=== PATIENT | male | born 1970 | race Caucasian/White ===

== ENCOUNTER 2023-10-24 12:59 | Inpatient (IN) | payer OTHER ==
[2023-10-24 13:12] VITALS: BMI 38.6
[2023-10-24 14:54] LABS: BASO % 0.9 % (0-2.0); EOS % 1.5 % (0-4.5); HEMATOCRIT 47.8 % (35.4-49); HEMOGLOBIN 16.1 GM/dL (11.7-16.9); LYMPH % 18.2 % (8-40); MCH 28.1 pg (25.7-33.7); MCHC 33.7 g/dl (32.0-35.9); MEAN CELL VOLUME 83.5 fl (80-96); MEAN PLT VOLUME 7.4 fl (7.5-11.1); MONO % 7.1 % (3.8-10.2); NEUT % 72.3 % (42.8-82.8); PLATELET COUNT 300 10^3/uL (134-434); RBC 5.72 M/mm3 (4.00-5.60); RDW 14.3 % (11.9-15.9); WHITE BLOOD COUNT 10.1 K/mm3 (4.0-10.0)
[2023-10-24 15:01] LABS: INR 1.1 (0.83-1.09); PROTHROMBIN TIME (PATIENT) 12.8 SEC (9.7-13.0)
[2023-10-24] MEDS: ENOXAPARIN NA (PORCINE) 120 MG/0.8 ML DISP.SYRIN SQ SCH (15:02)
[2023-10-24 15:04] LABS: ACTIVATED PTT 31.6 SECONDS (25.2-36.5)
[2023-10-24] MEDS: ENOXAPARIN NA (PORCINE) 120 MG/0.8 ML DISP.SYRIN SQ ONE (15:21)
[2023-10-24 15:23] LABS: POTASSIUM 4.4 mmol/L (3.5-5.1)
[2023-10-24 15:25] LABS: ALBUMIN 3.4 g/dl (3.4-5.0); BLOOD UREA NITROGEN 11.8 mg/dL (7-18); CALCIUM 8.9 mg/dL (8.5-10.1)
[2023-10-24 15:28] LABS: CREATININE 0.8 mg/dL (0.55-1.3)
[2023-10-24 15:30] LABS: BILIRUBIN,TOTAL 0.6 mg/dL (0.2-1); TOT PROT 7.4 g/dl (6.4-8.2)
[2023-10-24 18:01] VITALS: BP 138/87; PULSE 74; RESP 16; TEMP 98.2
[2023-10-24] MEDS ORDERED: ENOXAPARIN NA (PORCINE) 120 MG/0.8 ML DISP.SYRIN SQ SCH (22:00)
== END 2023-10-24 17:30 | disposition home or self-care (01) | DRG 197 ==
LOC: JER 12:59 → JERBED 15:27
PROVIDERS: ADMIT Family Medicine; ATTEND Family Medicine
DX: I82.412 Acute embolism and thrombosis of left femoral vein (principal); E66.9 Obesity, unspecified; Z72.0 Tobacco use; Z68.38 Body mass index [BMI] 38.0-38.9, adult
CPT/HCPCS: 36415; 80053; 85025; 85610; 85730; 93005; 93010; 99285-25